=== PATIENT | male | born 1970 | race Two or more races ===

== ENCOUNTER 2017-06-21 10:56 | Emergency (ER) | payer SELFPAY ==
[~2017-06-21] VITALS: Ht 162.6 cm; Wt 55.0 kg
[2017-06-21 13:30] LABS: CHLORIDE 97 mEq/L (98-107); HEMATOCRIT. 33.4 % (42.0-52.0); HEMOGLOBIN. 11.2 g/dL (14.0-18.0); MEAN CORPUSCULAR HEMOGLOBIN 26.9 pg (28.0-32.0); MEAN CORPUSCULAR VOLUME 80.5 fL (80.0-94.0); MEAN PLATELET VOLUME 6.8 fl (7.4-10.4); PLATELET 525 x1000/uL (130-400); RED BLOOD CELL COUNT 4.15 mill/uL (4.7-6.1); RED CELL DISTRIBUTION WIDTH 15.5 % (11.6-14.6)
[2017-06-21 14:07] LABS: PLATELET ESTIMATE INCREASED
[2017-06-21] MEDS ORDERED: IOHEXOL-300 100 ML BOTTLE ONE (15:35)
[2017-06-21 18:56] VITALS: BP 129/81
[2017-06-21] MEDS ORDERED: TETANUS, DIPHTHERIA, PERTUSSIS VAC/PF 0.5ML (>7YR OLD) IM ONE (19:15)
[2017-06-21] MEDS ORDERED: LIDOCAINE HCL 1% 20ML VIAL (Pyxis) INJ MC ONE (19:15)
[2017-06-21] MEDS ORDERED: LIDOCAINE HCL/PF 1% 10 MG/ML 5ML VIAL IJ ONE (20:15)
[2017-06-21] MEDS ORDERED: CLINDAMYCIN 600 MG in DEXTROSE 5% WATER 50 ML IV ONE (21:30)
== END 2017-06-21 22:35 | disposition home or self-care (01) ==
LOC: ER 11:18
DX: M25.511 Pain in right shoulder (principal); Z88.0 Allergy status to penicillin; R07.9 Chest pain, unspecified; R22.2 Localized swelling, mass and lump, trunk
CPT/HCPCS: 36415; 71045; 71260; 73030; 80053; 83605; 85025; 87040; 90471; 90715; 93005; 99285; J3490; Q9967; Z7610; J7060

== ENCOUNTER 2017-07-18 12:05 | Emergency (ER) | payer SELFPAY ==
[~2017-07-18] VITALS: Ht 162.6 cm; Wt 66.0 kg
[2017-07-18] MEDS ORDERED: IBUPROFEN 600MG TABLET PO ONE (13:45)
[2017-07-18] MEDS ORDERED: KETOROLAC 60MG/2ML VIAL IM ONE (18:00)
[2017-07-18] MEDS ORDERED: DEXAMETHASONE 10 MG/ML VIAL IM ONE (18:00)
[2017-07-18] MEDS ORDERED: HYDROCODONE/ACETAMINOPHEN 10/325MG TABLET PO ONE (18:00)
[2017-07-18 20:45] VITALS: BP 110/77
== END 2017-07-18 20:45 | disposition home or self-care (01) ==
LOC: ER 13:12
DX: M54.42 Lumbago with sciatica, left side (principal); R03.0 Elevated blood-pressure reading, without diagnosis of hypertension; F10.20 Alcohol dependence, uncomplicated; K74.60 Unspecified cirrhosis of liver; Z88.0 Allergy status to penicillin
CPT/HCPCS: 72131; 96372; 99284; J1100

== ENCOUNTER 2023-01-09 19:58 | Emergency (ER) | payer SELFPAY ==
[~2023-01-09] VITALS: Ht 172.7 cm; Wt 75.0 kg
[2023-01-09 20:03] VITALS: O2SAT 97
[2023-01-09 21:00] LABS: HEMATOCRIT. 43.8 % (42.0-52.0); HEMOGLOBIN. 14.4 g/dL (14.0-18.0); MEAN CORPUSCULAR HEMOGLOBIN 28.5 pg (28.0-32.0); MEAN CORPUSCULAR VOLUME 86.6 fL (80.0-94.0); MEAN PLATELET VOLUME 8.3 fl (7.4-10.4); PLATELET 225 x1000/uL (130-400); RED BLOOD CELL COUNT 5.06 mill/uL (4.7-6.1); WHITE BLOOD COUNT 11.2 x1000/uL (4.5-11.0)
[2023-01-09 21:04] LABS: CHLORIDE 102 mEq/L (98-107); INDEX HEMOLYSI 1 (1-3); INDEX ICTERIC 1 (1-4); INDEX LIPEMIC 1 (1-3); POTASSIUM 3.4 mEq/L (3.5-5.1); SODIUM 136 mEq/L (136-145)
[2023-01-09 21:13] LABS: DIFFERENTIAL COMMENT 1
[2023-01-09 21:17] LABS: ALANINE AMINOTRANSFERASE 68 IU/L (13-61); ALBUMIN 3.2 g/dL (3.4-5.0); ASPARTATE AMINOTRANSFERASE 98 IU/L (15-37); BILIRUBIN TOTAL 0.4 mg/dL (0.1-1.0); CALCIUM 8.5 mg/dL (8.5-10.1); CARBON DIOXIDE 26 mEq/L (21-32); CREATININE 0.9 mg/dL (0.6-1.3); ETHANOL BLOOD < 10 mg/dL (<10); GLUCOSE 198 mg/dL (70-105); PROTEIN TOTAL 7.8 g/dL (6.0-8.3); UREA NITROGEN BLOOD 19 mg/dL (7-21)
[2023-01-09] MEDS ORDERED: NALO4SPR BOTHNSTRLS (21:45)
[2023-01-09 22:01] LABS: PLATELET ESTIMATE NORMAL
[2023-01-10] VITALS: BP 121/86; PULSE 90; RESP 15; TEMP 98.2
== END 2023-01-10 06:59 | disposition home or self-care (01) ==
LOC: ER 19:58
DX: T50.901A Poisoning by unspecified drugs, medicaments and biological substances, accidental (unintentional), initial encounter (principal); Z88.0 Allergy status to penicillin; Y92.89 Other specified places as the place of occurrence of the external cause
CPT/HCPCS: 36415; 71045; 80053; 80320; 85025; 99284; G0480